=== PATIENT | female | born 1940 | race Caucasian/White ===

== ENCOUNTER 2016-11-16 16:07 | Emergency (ER) | payer MEDICARE, OTHER ==
[~2016-11-16] VITALS: Ht 154.9 cm; Wt 71.7 kg
[2016-11-16] MEDS ORDERED: SIMV10TA3 PO (16:39)
[2016-11-16] MEDS ORDERED: AMLO2.5T PO (16:39)
[2016-11-16] MEDS ORDERED: CELE200C PO (16:39)
[2016-11-16] MEDS ORDERED: GLUC1CAP48 PO (16:39)
[2016-11-16] MEDS ORDERED: CALC600T4 PO (16:40)
[2016-11-16] MEDS ORDERED: UBID100C12 PO (16:41)
[2016-11-16] MEDS ORDERED: MULT1TAB52 PO (16:41)
[2016-11-16] MEDS ORDERED: DIPHTH,PERTUSS(ACELL),TET TOX 0.5 ML DISP.SYRIN. VAX IM ONE (16:45)
--- NOTE | 2016-11-16 17:20 | PHYS DOC ---
Past Medical History Past Medical History: Arthritis, High Cholesterol, Hypertension Past Surgical History: Other Additional Past Surgical Histo: Total L)knee,partial R)knee,L)hand carpal tunnel,bilat eyelid surgery. Alcohol Use: None Drug Use: None Adult General Chief Complaint Chief Complaint: MECHANICAL FALL HPI HPI 76-year-old female presenting to the emergency department after sustaining a mechanical fall. She was pulling on a tarp which was on a camper when she lost synchronizer and fell backwards hitting the back of her head and her bottom. She reports headache without neck pain. She also complains of left sacral pain/left hip pain. She was ambulatory after the event. She denies abdominal pain chest pain shortness of breath. Her pain is sharp moderate intermittent nonradiating and without alleviating factors. Review of systems is negative for chest pain nausea vomiting abdominal pain. She denies injuring her upper extremities. All other review of systems is negative unless otherwise noted in history of present illness. Review of Systems Review of Systems SEE ABOVE. Current Medications Current Medications Current Medications Medications (Trade) Dose Ordered Sig/Akosua Start Time Stop Time Status Last Admin Dose Admin Diphtheria/ Tetanus/Acell Pertussis (Boostrix) 0.5 ml ONCE ONCE 11/16/16 16:45 11/16/16 16:46 DC Allergies Allergies Allergies Coded Allergies Type Severity Reaction Last Updated Verified Penicillins Allergy Unknown Welts. 11/16/16 Yes Physical Exam Physical Exam Constitutional: Well developed, well nourished, no acute distress, non-toxic appearance. [] HENT: Normocephalic, patient has moderate sized hematoma on the occiput. Mild abrasion present. Otherwise no lacerations., bilateral external ears normal, oropharynx moist, no oral exudates, nose normal. [] Eyes: PERRLA, EOMI, conjunctiva normal, no discharge. [] Neck: Normal range of motion, no tenderness, supple, no stridor. No crepitus to palpation of the anterior neck. Cervical thoracic and lumbar spine is palpated without any lacerations abrasions ecchymosis or step-offs. Nontender in the midline. Cardiovascular:Heart rate regular rhythm, no murmur [] Lungs & Thorax: Clear to auscultation bilaterally. No crepitus to palpation of the chest wall. Abdomen: Soft nontender abdomen without rebound tenderness or guarding present. Negative McBurneys point. Negative Still sign. No ecchymosis present. Skin: Warm, dry, no erythema, no rash. [] Back: No tenderness, no CVA tenderness. [] Extremities: No tenderness, no cyanosis, no clubbing, ROM intact, no edema. Nontender extremities. Neurologic: Mental status: Awake oriented and alert x3 Cranial nerves: Extraocular movements intact, eyebrows jaycee bilaterally smile symmetric, uvula elevation, shoulder shrug intact, tongue protrusion normal Sensation: equal and normal in all extremities Strength: 5/5 in upper and lower extremities bilaterally Psychologic: Affect normal, judgement normal, mood normal. [] Current Patient Data Vital Signs Vital Signs Date Time Temp Pulse Resp B/P Pulse Ox O2 Delivery O2 Flow Rate FiO2 11/16/16 18:15 62 19 150/79 98 Room Air 11/16/16 16:12 98.3 98.3 Lab Values Laboratory Tests Test 11/16/16 17:25 White Blood Count 6.2x10^3/uL (4.0-11.0) Red Blood Count 4.24x10^6/uL (3.50-5.40) Hemoglobin 12.7g/dL (12.0-15.5) Hematocrit 38.6% (36.0-47.0) Mean Corpuscular Volume 91fL (79-100) Mean Corpuscular Hemoglobin 30pg (25-35) Mean Corpuscular Hemoglobin Concent 33g/dL (31-37) Red Cell Distribution Width 13.9% (11.5-14.5) Platelet Count 309x10^3/uL (140-400) Neutrophils (%) (Auto) 60% (31-73) Lymphocytes (%) (Auto) 26% (24-48) Monocytes (%) (Auto) 11% (0-9) H Eosinophils (%) (Auto) 3% (0-3) Basophils (%) (Auto) 1% (0-3) Neutrophils # (Auto) 3.7x10^3uL (1.8-7.7) Lymphocytes # (Auto) 1.6x10^3/uL (1.0-4.8) Monocytes # (Auto) 0.6x10^3/uL (0.0-1.1) Eosinophils # (Auto) 0.2x10^3/uL (0.0-0.7) Basophils # (Auto) 0.0x10^3/uL (0.0-0.2) Prothrombin Time 12.5SEC (11.7-14.0) Prothrombin Time INR 1.0 (0.8-1.1) PTT 29SEC (24-38) Urine Collection Type Unknown Urine Color Yellow Urine Clarity Clear Urine pH 7.5 Urine Specific Philo <=1.005 Urine Protein Negativemg/dL (NEG-TRACE) Urine Glucose (UA) Negativemg/dL (NEG) Urine Ketones (Stick) Negativemg/dL (NEG) Urine Blood Small (NEG) Urine Nitrite Negative (NEG) Urine Bilirubin Negative (NEG) Urine Urobilinogen Dipstick 0.2mg/dL (0.2 mg/dL) Urine Leukocyte Esterase Negative (NEG) Urine RBC 3-5/HPF (0-2) Urine WBC 0/HPF (0-4) Urine Squamous Epithelial Cells Occ/LPF Urine Bacteria 0/HPF (0-FEW) Urine Mucus Slight/LPF Sodium Level 145mmol/L (136-145) Potassium Level 3.7mmol/L (3.5-5.1) Chloride Level 106mmol/L (98-107) Carbon Dioxide Level 28mmol/L (21-32) Anion Gap 11 (6-14) Blood Urea Nitrogen 19mg/dL (7-20) Creatinine 0.7mg/dL (0.6-1.0) Estimated GFR (Cockcroft-Gault) 81.4 Glucose Level 119mg/dL (70-99) H Lactic Acid Level 1.0mmol/L (0.4-2.0) Calcium Level 9.7mg/dL (8.5-10.1) Total Bilirubin 0.3mg/dL (0.2-1.0) Direct Bilirubin 0.1mg/dL (0.0-0.2) Aspartate Amino Transferase (AST) 26U/L (15-37) Alanine Aminotransferase (ALT) 29U/L (14-59) Alkaline Phosphatase 76U/L (46-116) Troponin I Quantitative < 0.017ng/mL (0.000-0.055) LH-Xsu-P-Type Natriuretic Peptide 48pg/mL (0-449) Total Protein 6.9g/dL (6.4-8.2) Albumin 4.0g/dL (3.4-5.0) Lipase 163U/L (73-393) Laboratory Tests 11/16/16 17:25 Laboratory Tests 11/16/16 17:25 EKG EKG [] Radiology/Procedures Radiology/Procedures [] Course & Med Decision Making Course & Med Decision Making Pertinent Labs and Imaging studies reviewed. (See chart for details) [] 76-year-old female presenting to the emergency department after sustaining a mechanical fall. On presentation the patient's vital signs afebrile. Normal heart rate. Hypertension present. Otherwise pertinent physical exam findings show hematoma to the occiput. Mild abrasion as well. Otherwise mild pain with range of motion of the right hip. Normal neurovascular status of all extremities. Left hip has normal range of motion without pain. Chest x-ray, and pelvis and hip x-ray obtained. Head CT and neck CT obtained. Chest x-ray and pelvis x-ray unremarkable. Patient was able walk in the emergency department without difficulty. Head neck CT negative. Otherwise the patient's workup shows normal CBC urinalysis negative. Chem panel negative. Patient subsequent discharged home with oral pain medication to follow up with PCP over the next 2- 3 days. Dragon Disclaimer Dragon Disclaimer This electronic medical record was generated, in whole or in part, using a voice recognition dictation system. Departure Departure Impression: Primary Impression: Head injury Additional Impressions: Fall Hip pain, left Disposition: 01 HOME, SELF-CARE Condition: STABLE Referrals: KRAIG ALEGRE MD Patient Instructions: Head Injury, Adult Additional Instructions: Thank you for allowing us to participate in your care today. Followup with your primary care physician in 3 days if your symptoms do not improve. If you do not have a primary care provider you can ask for a list of our primary care providers. Return to the emergency department you have any new or concerning findings. This should be evaluated by the primary care physician and any necessary consulting services for continued management within a few days after discharge. Return to emergency room if you have any new or concerning symptoms including but not limited to fever, chills, nausea, vomiting, intractable pain, any new rashes, chest pain, shortness of air, uncontrolled bleeding, difficulty breathing, and/or vision loss. You may have been prescribed medication that can change in your level of thinking and ability to operate machinery. These medications include hydrocodone and Ativan. Also, Benadryl has been known to do this as well. Be sure to check with your pharmacist and ask if the medications you've prescribed can affect your level of consciousness. I recommend not operating heavy machinery or driving while on medication such as these. Scripts Hydrocodone Bit/Acetaminophen (Hydrocodone-Apap 5-325 )1 Each Tablet1 Tab PO PRN Q6HRS PRN PAIN #15 TAB Be careful as this medication may cause you to be drowsy or tired. Do not drive on this medication. Prov:MARYAN AUGUST MD 11/16/16 Problem Qualifiers MARYAN AUGUST MD Nov 16, 2016 17:20
--- NOTE | 2016-11-16 17:22 | RAD ---
PROCEDURE CT head and cervical spine without contrast. HISTORY Dizziness and headache after fall. Neck pain. TECHNIQUE Noncontrast CT head was obtained. CT cervical Spine includes axial images and coronal and sagittal re-formatted images. One or more of the following individualized dose reduction techniques were utilized for this exam: 1. Automated exposure control. 2. Adjustment of the mA and/or kV according to patient's size. 3. Use of iterative reconstruction technique. COMPARISON None provided. FINDINGS Head: There is prominence of the ventricles and sulci which is within normal limits for age. There is no acute intracranial hemorrhage or extra-axial fluid collection. There is no mass effect or midline shift. Gallegos-white differentiation is preserved. There is no depressed skull fracture. Paranasal sinuses and mastoid air cells are clear. Scalp hematoma is noted high right parietal region. Orbital contents are unremarkable. Cervical spine: There is slight anterolisthesis at C3-C4. This is probably secondary to facet hypertrophy. No traumatic malalignment is apparent. There is no fracture. Craniovertebral junction is unremarkable. Prevertebral soft tissues are within normal limits. Disc osteophyte complexes and uncinate process spurring are noted, greatest at C4-C5 and C5-C6. There is high-grade right foraminal narrowing at C4-C5 and mild to moderate foraminal narrowing on the left at C5-C6. There is no definite high-grade canal stenosis at any level. Lymph nodes along the cervical chains are presumed reactive. There is minimal apical scarring. Minimal carotid artery calcifications are noted. IMPRESSION Head: - No acute intracranial findings. - Brain parenchymal volume loss. Cervical spine: - Negative for fracture or dislocation in the cervical spine. - Degenerative changes in the cervical spine. Electronically signed by: Nicolás Pyle MD (Nov 16, 2016 17:20:09)
[2016-11-16 17:45] LABS: BASO % 1 % (0-3); EOS % 3 % (0-3); HEMATOCRIT 38.6 % (36.0-47.0); HEMOGLOBIN 12.7 g/dL (12.0-15.5); LYMPH # 1.6 x10^3/uL (1.0-4.8); LYMPH % 26 % (24-48); MEAN CORPUSCULAR HEMOGLOBIN 30 pg (25-35); MEAN CORPUSCULAR HGB CONC 33 g/dL (31-37); MEAN CORPUSCULAR VOLUME 91 fL (79-100); MONO % 11 % (0-9); NEUT % 60 % (31-73); PLATELET COUNT 309 x10^3/uL (140-400); RED BLOOD COUNT 4.24 x10^6/uL (3.50-5.40); RED CELL DISTRIBUTION WIDTH 13.9 % (11.5-14.5); WHITE BLOOD COUNT 6.2 x10^3/uL (4.0-11.0)
[2016-11-16 17:47] LABS: BILIRUBIN,URINE NEGATIVE (NEG); GLUCOSE,URINE NEGATIVE (NEG); NITRITE,URINE NEGATIVE (NEG); PH,URINE 7.5; PROTEIN,URINE NEGATIVE (NEG-TRACE); UROBILINOGEN,URINE 0.2 mg/dL (0.2 mg/dL)
[2016-11-16 17:55] LABS: BACTERIA,URINE 0 /HPF (0-FEW); SQUAMOUS EPITHELIAL CELL,UR OCC /LPF; WBC,URINE 0 /HPF (0-4)
[2016-11-16 18:02] LABS: CALCIUM 9.7 mg/dL (8.5-10.1); CREATININE 0.7 mg/dL (0.6-1.0); GFR 81.4; POTASSIUM 3.7 mmol/L (3.5-5.1); PROTHROMBIN TIME PATIENT 12.5 SEC (11.7-14.0)
[2016-11-16 18:15] VITALS: BP 150/79
[2016-11-16 18:15] LABS: DIRECT BILIRUBIN 0.1 mg/dL (0.0-0.2); TOTAL BILIRUBIN 0.3 mg/dL (0.2-1.0); TOTAL PROTEIN 6.9 g/dL (6.4-8.2)
[2016-11-16] MEDS ORDERED: HYDR-2666 PO (19:27)
--- NOTE | 2016-11-17 08:46 | RAD ---
Pelvis with right hip, 3 views, 11/16/2016: History: Fall, pain No fracture or dislocation is identified. The hip joints are well preserved with only mild marginal spurring. Moderate degenerative change is evident in the lower lumbar spine. IMPRESSION: No acute bony abnormality is detected.
--- NOTE | 2016-11-17 08:47 | RAD ---
AP chest, 11/16/2016: History: Fall The heart size and pulmonary vascularity are normal. No pulmonary infiltrates are seen. There is no evidence of pleural fluid. Moderate spurring is present in the spine. IMPRESSION: No acute cardiopulmonary abnormality is detected.
== END 2016-11-16 20:47 | disposition home or self-care (01) ==
LOC: ER 16:07
DX: S09.90XA Unspecified injury of head, initial encounter (principal); M25.552 Pain in left hip; M19.90 Unspecified osteoarthritis, unspecified site; E78.00 Pure hypercholesterolemia, unspecified; I10 Essential (primary) hypertension; Z88.0 Allergy status to penicillin; W01.198A Fall on same level from slipping, tripping and stumbling with subsequent striking against other object, initial encounter; Y93.89 Activity, other specified; Y92.89 Other specified places as the place of occurrence of the external cause; Y99.8 Other external cause status
CPT/HCPCS: 36415; 70450; 71010; 72125; 73502; 80048; 80076; 81001; 83605; 83690; 83880; 84484; 85027; 85610; 85730; 86850; 86900; 86901; 99285-25